=== PATIENT | female | born 1980 | race Caucasian/White ===

== ENCOUNTER 2024-09-01 12:59 | Emergency (ER) | payer BC ==
[~2024-09-01] VITALS: Ht 177.8 cm; Wt 99.8 kg
[2024-09-01] MEDS: acetaMINOPHEN 500 MG TABLET PO STA (14:11)
--- NOTE | 2024-09-01 14:52 | HMCIMG ---
Exam Type: HAND 3+VWS RT Clinical Information: pain/swelling Comparison: None Findings: The bone examination is unremarkable. No fractures or dislocations are seen. No radiopaque foreign bodies are noted. There is no bone destruction to suggest osteomyelitis or tumor. The soft tissues are unremarkable. Impression: Normal exam.
--- NOTE | 2024-09-01 14:58 | ERN ---
ED Note History of Present Illness Stated Complaint: RIGHT ARM FINGER/HAND PAIN Chief Complaint: Finger Injury Time Seen by MD: 13:28 Time Seen by Midlevel: 13:33 Dictation: 43-year-old female with no past medical history coming in with complaints of l eft 5th digit pain extending to the knuckle area. Patient states last night they were using [employer] to cut branches shortly after that she began with the pain. States she denies any obvious trauma or any puncture wound or abrasions. Allergies: Coded Allergies: morphine (Unverified Allergy, Unknown, 09/01/24) Past Medical History Past Medical History: No Pertinent History Surgical History: Tonsillectomy, Other, Surgical History Other: LT KNEE SX LMP: Aug 23, 2024 Review of System Dictation Constitutional: Negative for fever,chills, and weight loss Eyes: Negative for injury, pain,redness, and discharge ENT: Negative for injury,pain or swelling Cardiovascular: Negative for chest pain, palpitations, and edema Respiratory: Negative for shortness of breath, cough, and wheezing, Abdomen/GI: Negative for abdominal pain, nausea, vomiting, diarrhea, and constipation Back: Negative for injury and pain : Negative for injury, bleeding and discharge MS/Extremity: Complaining of left 5th digit in hand pain Skin: Negative for rash, and discoloration Neuro: Negative for headache, weakness, numbness, tingling, and seizure Psych: Negative for suicide ideation, homicidal ideation, and hallucinations Review of Systems: was completed Initial Vital Sign VS Vital Signs Date Time Temp Pulse Resp B/P (MAP) Pulse Ox O2 Delivery O2 Flow Rate FiO2 09/01/24 13:13 97.9 83 20 126/68 99 Room Air 09/01/24 13:57 0 21 Physical Exam Dictation General: awake, alert, NAD Head/Face: Normocephalic, atraumatic Eyes: PERRL, EOMI, vision at baseline ENT: oral cavity clear, TMs clear, no signs of infection Neck: Trachea midline, supple, no nuchal rigidity Cardiovascular: RRR, normal S1/S2, No MRGs, no JVD Respiratory: CTAB, no respiratory distress, No rales or wheezes Abdomen: Soft, non-tender, non-distended, normal bowel sounds, no guarding or rebound. Skin: Warm, dry, normal turgor, no rash MS/Extremity: Pulses equal, no cyanosis, neurovascular intact, FROM, minimal swelling noted to the metacarpal area of the 5th digit, Neuro: COAx4, GCS 15, strength 5/5, CN 2-12 intact, normal cerebellar exam, normal gait, Psych: Normal behavior, mood, and affect normal Results (Laboratory/Radiology) X-RAY Comment: [facility] [address] [place] [address] IMAGING REPORT Signed PATIENT: ROSE CYR MR#: [id number] : 1980 SEX: F AGE: 43 LOCATION: [facility] ORDER 38 STATUS: REG ER REPORT#: [id number] SERVICE 36 REASON: pain/swelling ORDERING PHYSICIAN: HAFSA COVARRUBIAS NP PROCEDURE: HAND 3V RT - HAND 3+VWS RT Exam Type: HAND 3+VWS RT Clinical Information: pain/swelling Comparison: None Findings: The bone examination is unremarkable. No fractures or dislocations are seen. No radiopaque foreign bodies are noted. There is no bone destruction to suggest osteomyelitis or tumor. The soft tissues are unremarkable. Impression: Normal exam. DICTATED BY: LILLIE DURHAM MD DATE: 09/01/241448 ELECTRONICALLY SIGNED BY: LILLIE DURHAM MD DATE: 09/01/24 1452 ED Course ED Course Orders Procedure Category Date Status Time Hand 3+Vws Rt RAD 09/01/24 Resulted 13:37 Acetaminophen 500mg PHA 09/01/24 Complete Tab (Tylenol 500mg T 13:37 *Nursing CPOE 09/01/24 Transmitted Communication: 14:54 Current Medications Medications (Trade) Dose Ordered Sig/Lili Route PRN Reason Start Time Stop Time Status Last Admin Dose Admin Acetaminophen (TYLenol 500MG TAB) 1,000 mg ONCE STAT PO 09/01/24 13:37 09/01/24 13:40 DC 09/01/24 14:11 Vital Signs Date Time Temp Pulse Resp B/P (MAP) Pulse Ox O2 Delivery O2 Flow Rate FiO2 09/01/24 13:57 98.1 88 20 125/70 100 Room Air* 0 21 09/01/24 13:13 97.9 83 20 126/68 99 Room Air Medical Decision Making MDM MDM: 43-year-old female with no past medical history coming in with complaints of left 5th digit pain extending to the knuckle area. Patient states last night they were using [employer] to cut branches shortly after that she began with the pain. States she denies any obvious trauma or any puncture wound or abrasions. X-ray of the hand shows fracture to the 5th proximal phalanges, nondisplaced interpreted by ER MD. x-ray interpreted by radiologist rates no findings. Patient was still be splinted to follow up with orthopedic outpatient. Patient made aware of findings. Educated take Tylenol or Motrin [id number] for pain control. Differential diagnosis: Contusion, metacarpal fracture, Rationale: Tests considered and ordered secondary to shared decision making include: Previous outside records reviewed: Old ER visits. Risk of complication and/or morbidity or mortality of patient management: None Medications-Per medication reconciliation Need for hospitalization: Patient does not meet criteria for hospitalization. Need for emergency major/minor surgery: No There are no social concerns with this patient. Prescription drug management Prescriptions will include symptomatic care Patient's prior external medical records from other ER visits were reviewed by me as indicated. Prior testing and results from previous visits were reviewed. Prior tests were taken into account with medical decision making and resource utilization, independent historian/historians were used to obtain complete medical history. I independently interpreted the test that were performed, results were reviewed by me and considered findings on radiology if ordered. Medical management and examination interpretation discussions were had by me with other qualified healthcare professionals as indicated for the patient's care. DX & DISP Disposition: Discharge Departure Impression: Primary Impression: Hand contusion Condition: Stable Additional Instructions: Follow up with the strategic communications specialist. Keep splint on until cleared. Take Tylenol Motrin [id number] for pain control. Referrals: NASIR TRISTAN MD Time of Disposition: 15:02 I have reviewed the case, and I agree with, Diagnosis and Plan HAFSA COVARRUBIAS NP Sep 01, 2024 14:58
--- NOTE | 2024-09-01 15:39 | NUR ---
ORTHOGLASS USED TO PROVIDE BOXER SPLINT FOR PATIENTS RIGHT HAND. PT TOLERATED PROCEDURE WELL. 2 CHRIS BANDAGES USED OVER ORTHOGLASS AND PADDING USED BELOW ORTHOGLASS TO PREVENT SKIN BARRIER. XL ARM SLING USED TO HOLD ARM.
[2024-09-01 15:47] VITALS: BP 132/62; PULSE 74; RESP 16; TEMP 98.6; O2SAT 99
== END 2024-09-01 15:48 | disposition home or self-care (01) ==
LOC: EDH 12:59
DX: S60.221A Contusion of right hand, initial encounter (principal); Z88.5 Allergy status to narcotic agent; Z90.89 Acquired absence of other organs; X58.XXXA Exposure to other specified factors, initial encounter; Y93.89 Activity, other specified; Y92.89 Other specified places as the place of occurrence of the external cause; Y99.8 Other external cause status
CPT/HCPCS: 29125; 73130; 99283